=== PATIENT | male | born 1995 ===

== ENCOUNTER 2018-09-29 10:00 | Emergency (ER) | payer OTHER ==
[2018-09-29] MEDS ORDERED: LORazepam TAB(*) 1 MG PO ONE (10:41)
[2018-09-29] MEDS ORDERED: Ketorolac INJ* 30 MG/ML 1 ML VIAL IM ONE (10:41)
--- NOTE | 2018-09-29 10:43 | ED ---
Back Pain - HPI Summary HPI Summary: Pt is a 23 y/o M presenting to the ED with a chief complaint of lower back pain onset yesterday morning but much worse since last night. He went grocery shopping, carried in a case of water, and it started hurting more after that. He also recently started going to the gym and doing more sports. Aggravating factors include movement, changing positions, bending, walking, deep breaths, and sneezing. Alleviating factors include rest. Pt reports it hurts a little bit to lift his legs, and it hurts more when he uses his core muscles. - History of Current Complaint Chief Complaint: EDBackInjuryPain Stated Complaint: BACK PAIN Time Seen by Provider: 09/29/18 10:34 Hx Obtained From: Patient Onset/Duration: Sudden Onset, Lasting Days, Still Present Onset/Duration: Started Days Ago, Still Present Timing: Constant, Lasting Hours Back Pain Location: Is Discrete @ - lower back Severity Initially: Moderate Severity Currently: Moderate Pain Intensity: 7 Pain Scale Used: 0-10 Numeric Character: Aching Aggravating Symptom(s): Movement, Lifting, Bending, Walking, Cough Alleviating Symptom(s): Rest - not changing position Associated Signs And Symptoms: Positive: Pain with Weight Bearing - Allergies/Home Medications Allergies/Adverse Reactions: Allergies Allergy/AdvReac Type Severity Reaction Status Date / Time No Known Allergies Allergy Verified 09/29/18 10:06 PMH/Surg Hx/FS Hx/Imm Hx Previously Healthy: Yes Endocrine/Hematology History: Denies: Hx Diabetes Cardiovascular History: Denies: Hx Hypertension Infectious Disease History: No Infectious Disease History: Denies: Traveled Outside the [place] in Last 30 Days - Family History Known Family History: Negative: Hypertension, Diabetes - Social History Alcohol Use: Weekly Alcohol Amount: about 2 drinks/wk Hx Substance Use: No Hx Tobacco Use: No Do You Chew or Dip Tobacco: No Review of Systems Negative: Fever Positive: Myalgia - back pain All Other Systems Reviewed And Are Negative: Yes Physical Exam - Summary Physical Exam Summary: Appearance: The patient is well-nourished in no acute distress and in no acute pain. Skin: The skin is warm and dry and skin color reflects adequate perfusion. HEENT: The head is normocephalic and atraumatic. The pupils are equal and reactive. The conjunctivae are clear and without drainage. Nares are patent and without drainage. Mouth reveals moist mucous membranes and the throat is without erythema and exudate. The external ears are intact. The ear canals are patent and without drainage. The tympanic membranes are intact. Neck: The neck is supple with full range of motion and non-tender. There are no carotid bruits. There is no neck vein distension. Respiratory: Chest is non-tender. Lungs are clear to auscultation and breath sounds are symmetrical and equal. Cardiovascular: Heart is regular rate and rhythm. There is no murmur or rub auscultated. There is no peripheral edema and pulses are symmetrical and equal. Abdomen: The abdomen is soft and non-tender. There are normal bowel sounds heard in all four quadrants and there is no organomegaly palpated. Musculoskeletal: Pain can be reproduced by moving his back. Negative straight leg raise. Neurovascular and motor are intact. Extremities are non-tender with full range of motion. There is good capillary refill. There is no peripheral edema or calf tenderness elicited. Neurological: Patient is alert and oriented to person, place and time. The patient has symmetrical motor strength in all four extremities. Cranial nerves are grossly intact. Deep tendon reflexes are symmetrical and equal in all four extremities. Psychiatric: The patient has an appropriate affect and does not exhibit any anxiety or depression. Triage Information Reviewed: Yes Vital Signs On Initial Exam: Initial Vitals Temp Pulse Resp BP Pulse Ox 98.3 F 61 16 117/48 99 09/29/18 10:03 09/29/18 10:03 09/29/18 10:03 09/29/18 10:03 09/29/18 10:03 Vital Signs Reviewed: Yes Diagnostics - Vital Signs Vital Signs Temp Pulse Resp BP Pulse Ox 09/29/18 10:03 98.3 F 61 16 117/48 99 - Laboratory Lab Statement: Any lab studies that have been ordered have been reviewed, and results considered in the medical decision making process. Back Pain Course/Dx - Course Course Of Treatment: Mr. Petit presented because of low to mid back pain. He has recently started exercising a lot more and was feeling some tension in his back when yesterday he was bending over and got sudden pain. He now feels tension and pain with any movement, he is okay if he stays still. He denies any change in his bowels or his bladder or any weakness in his lower extremities. He can ambulate but it is painful. He was nontoxic in appearance and his vitals were stable but he certainly appeared to be in pain with any attempt him move his back. His abdomen was soft and nontender and he had no leg raise pain. Distal neurovascular motor were intact. Initially I gave him with Ativan as a muscle relaxer and ketorolac as anti-inflammatory. This helped some and we were getting ready for discharge when he hiccuped and his pain and spasm returned. He was given Percocet at that point. This seems like a musculoskeletal pain a disc injury is not out of the question and may need to be pursued as an outpatient. Meanwhile I will treat him symptomatically. - Diagnoses Provider Diagnoses: Low back strain Discharge - Sign-Out/Discharge Documenting (check all that apply): Patient Departure Patient Received Moderate/Deep Sedation with Procedure: No - Discharge Plan Condition: Stable Disposition: HOME Prescriptions: LORazepam TAB(*) [Ativan TAB(*)] 1 mg PO Q6H PRN #10 tab MDD 4 PRN Reason: Pain traMADol TAB* [Ultram*] 50 mg PO BEDTIME PRN #20 tab MDD 1 PRN Reason: Pain Referrals: [facility] [Outside] Additional Instructions: Take 600mg of ibuprofen up to three times a day as needed for your back pain. Please take your prescribed medications as instructed. Follow up with your primary care provider in the next 2-3 days. Return to the emergency department with any new or worsening symptoms. - Billing Disposition and Condition Condition: STABLE Disposition: Home - Attestation Statements Document Initiated by Tarsha: Yes Documenting Scribe: Cherelle Guthrie Provider For Whom Tarsha is Documenting (Include Credential): Andrew Rey MD. Scribe Attestation: Cherelle Fofana, scribed for Andrew Rey MD. on 09/29/18 at 1443. Scribe Documentation Reviewed: Yes Provider Attestation: The documentation as recorded by the Cherelle ross accurately reflects the service I personally performed and the decisions made by me, Andrew Rey MD. Status of Scribe Document: Viewed
[2018-09-29] MEDS ORDERED: oxyCODONE/Acetamin 5/325 MG* TAB PO ONE (13:13)
[2018-09-29 13:42] VITALS: BP 113/59
== END 2018-09-29 13:49 | disposition home or self-care (01) ==
LOC: ED 10:00
DX: S39.012A Strain of muscle, fascia and tendon of lower back, initial encounter (principal); X58.XXXA Exposure to other specified factors, initial encounter; Y92.9 Unspecified place or not applicable
CPT/HCPCS: 96372; 99282; A9270-GY; J1885